=== PATIENT | female | born 1990 | race Caucasian/White ===

== ENCOUNTER 2019-03-27 18:24 | Emergency (ER) | payer OTHER ==
[2019-03-27] MEDS ORDERED: SODIUM CHLORIDE 0.9% 500 ML 500 ML IV ONE (18:48)
[2019-03-27] MEDS ORDERED: cefTRIAXone IN SWFI 1,000 MG/10 ML SYRINGE IVP STA (18:49)
[2019-03-27 18:57] LABS: Basophils % (A) 0 %; Eosinophils # (A) 0.1 k/uL (0-0.7); Eosinophils % (A) 2 %; HCT 35.6 % (34.0-46.0); HGB 12.8 gm/dL (11.4-16.0); Lymphocytes # (A) 1.9 k/uL (1.0-4.8); Lymphocytes % (A) 28 %; MCHC 36.1 g/dL (31.0-37.0); MCV 83.3 fL (80.0-100.0); Mean Platelet Volume 6.7; Monocytes # (A) 0.3 k/uL (0-1.0); Monocytes % (A) 5 %; Neutrophils # (A) 4.5 k/uL (1.3-7.7); Neutrophils % (A) 64 %; Platelet Count 226 k/uL (150-450); RBC 4.28 m/uL (3.80-5.40)
--- NOTE | 2019-03-27 19:20 | ED ---
Skin/Abscess/FB HPI <ShaheedJason - Last Filed: 03/27/19 19:50> - General Source: patient Mode of arrival: ambulatory Limitations: no limitations <Gladys Fry - Last Filed: 03/27/19 20:52> - General Chief complaint: Skin/Abscess/Foreign Body Stated complaint: rt leg infection, poss bug bite Time Seen by Provider: 03/27/19 18:28 - History of Present Illness Initial comments: 28-year-old female presents emergency department for chief complaint of insect bites of the right lower leg with possible infection. Patient states that about a week ago she noticed insect bites. She states that they looked red and infected so she presented to a local urgent care, where she was diagnosed with cellulitis. She states one lesion of the right lower lateral leg was more invasive appear to be forming an abscess. Patient states she was prescribed Keflex at this time. Patient states that she was not confident in the care she received at the urgent care and presented to primary care provider on Thursday she states that she was discontinued from the Keflex and begin on clindamycin patient states she has taken a total of 9 doses. Patient states that she does not feel that redness is getting better. Patient states there is a purulent center of the lesion of the distal right lateral leg. Patient was concerned that it was worsening presented [facility] for evaluation. Patient has a fever or fl ulike symptoms. Remaining review of system negative. Upon arrival patient appears well signs acute distress afebrile. (Gladys Fry) - Related Data Previous Rx's Medication Instructions Recorded Clindamycin [Cleocin] 450 mg PO Q8H 7 Days #63 capsule 03/27/19 Allergies Allergy/AdvReac Type Severity Reaction Status Date / Time No Known Allergies Allergy Verified 03/27/19 18:31 Review of Systems ROS Other: All systems not noted in ROS Statement are negative. <Jason Hummel - Last Filed: 03/27/19 19:50> ROS Other: All systems not noted in ROS Statement are negative. <Gladys Fry - Last Filed: 03/27/19 20:52> ROS Statement: Those systems with pertinent positive or pertinent negative responses have been documented in the HPI. Past Medical History Past Medical History: No Reported History History of Any Multi-Drug Resistant Organisms: None Reported Additional Past Surgical History / Comment(s): cyst removal Past Psychological History: No Psychological Hx Reported Smoking Status: Never smoker Past Alcohol Use History: None Reported Past Drug Use History: None Reported <Valerie Fryruben Mata - Last Filed: 03/27/19 20:52> General Exam Limitations: no limitations <Gladys Fry - Last Filed: 03/27/19 20:52> - General Exam Comments Initial Comments: General: The patient is awake and alert, in no distress, and does not appear acutely ill. Eye: Pupils are equal, round and reactive to light, extra-ocular movements are intact. No nystagmus. There is normal conjunctiva bilaterally. No signs of icterus. Cardiovascular: There is a regular rate and rhythm. No murmur, rub or gallop is appreciated. Respiratory: Lungs are clear to auscultation, respirations are non-labored, breath sounds are equal. No wheezes, stridor, rales, or rhonchi. Musculoskeletal: Normal ROM, no tenderness. Strength 5/5. Sensation intact. Pulses equal bilaterally 2+. Neurological: A&O x 3. CN II-XII intact grossly, There are no obvious motor or sensory deficits. Coordination appears grossly intact. Speech is normal. Skin: Skin is warm and dry. Radnom distribution of raised red lesions, there is multiple of the right leg jsut distal to the tibia, no abscess. No surrounding erythema. There is a lesion of the right lower leg lateral aspect a purulent center, no fluctuance of mild induration. There is very faint redness surrounding this lesion that extends towards the dorsum of the foot. There is no circumferential redness. No vesicular lesions crepitus of patient's skin. Psychiatric: Cooperative, appropriate mood & affect, normal judgment. (Gladys Fry) Course <Jason Hummel - Last Filed: 03/27/19 19:50> Vital Signs 03/27/19 03/27/19 18:26 19:52 Temperature 98 F 98.3 F Pulse Rate 79 85 Respiratory 20 18 Rate Blood Pressure 121/72 126/80 O2 Sat by Pulse 100 99 Oximetry - Reevaluation(s) Reevaluation #1: 03/27/19 19:50 PA supervision: I proceeded [id number] evaluation the patient did discuss Rashida love her and her . 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 The area in question a right lateral distal leg is as a level of the top of her boot. ID was done by the physician merchandising assistant without any further removal of possible the family did get pus out at home. The medications will be altered to increasing doses I did recommend she elevate her leg in addition to follow-up with her doctor return when necessary (Jason Hummel) Procedures - Incision & Drainage Consent Obtained: verbal consent Site: lower extremity (right leg on lesion) Size (cm): 1 (actual size .5 cm) I&D Cleaning Method: Chloroprep Sterile Field Used?: No Needle Aspiration Performed?: Yes (no drainage, only blood) Irrigation Performed?: No I&D Drainage Obtained: Blood Culture Obtained?: No Patient Tolerated Procedure: well, no complications <Gladys Fry - Last Filed: 03/27/19 20:52> Medical Decision Making - Lab Data Result diagrams: 03/27/19 18:50 03/27/19 19:00 <Jason Hummel - Last Filed: 03/27/19 19:50> - Lab Data Result diagrams: 03/27/19 18:50 03/27/19 19:00 <Gladys Fry - Last Filed: 03/27/19 20:52> - Medical Decision Making 28-year-old presented for evaluation of cellulitis. Patient concerned infection is worsening. Patient on 3 mg of Clinda 3 times a day total of 9 doses. Patient appears to have mild sailors examination. There is a very small area of induration no fluctuance with a purulent center. He'll aspiration was performed revealing no purulent drainage obtained. Only blood. Patient was given 1 dose of IV push Rocephin. Patient is no leukocytosis does not appear septic. This does not appear to be an extensive cellulitis. The doses of clindamycin be increased to 450 mg 3 times a day. Return parameters were discussed at length the patient was evaluated by my attending provider is agreeable care plan discharge at this time. Patient is agreeable to discharge and is aware of all return parameters including immediate return to emergency department for fevers flu like symptoms or spreading of the redness. Patient was discharged appearing well. (Gladys Fry) - Lab Data Lab Results 03/27/19 03/27/19 03/27/19 Range/Units 18:50 19:00 19:00 WBC 7.0 (3.8-10.6) k/uL RBC 4.28 (3.80-5.40) m/uL Hgb 12.8 (11.4-16.0) gm/dL Hct 35.6 (34.0-46.0) % MCV 83.3 (80.0-100.0) fL MCH 30.0 (25.0-35.0) pg MCHC 36.1 (31.0-37.0) g/dL RDW 12.0 (11.5-15.5) % Plt Count 226 (150-450) k/uL Neutrophils % 64 % Lymphocytes % 28 % Monocytes % 5 % Eosinophils % 2 % Basophils % 0 % Neutrophils # 4.5 (1.3-7.7) k/uL Lymphocytes # 1.9 (1.0-4.8) k/uL Monocytes # 0.3 (0-1.0) k/uL Eosinophils # 0.1 (0-0.7) k/uL Basophils # 0.0 (0-0.2) k/uL Sodium 140 (137-145) mmol/L Potassium 3.8 (3.5-5.1) mmol/L Chloride 106 (98-107) mmol/L Carbon Dioxide 25 (22-30) mmol/L Anion Gap 9 mmol/L BUN 10 (7-17) mg/dL Creatinine 0.86 (0.52-1.04) mg/dL Est GFR (CKD-EPI)AfAm >90 (>60 ml/min/1.73 sqM) Est GFR (CKD-EPI)NonAf >90 (>60 ml/min/1.73 sqM) Glucose 97 (74-99) mg/dL Calcium 9.0 (8.4-10.2) mg/dL Total Bilirubin 0.6 (0.2-1.3) mg/dL AST 19 (14-36) U/L ALT 17 (9-52) U/L Alkaline Phosphatase 51 (38-126) U/L Total Protein 7.4 (6.3-8.2) g/dL Albumin 4.3 (3.5-5.0) g/dL Urine HCG, Qual Not Detected (Not Detectd) Disposition <Jason Hummel - Last Filed: 03/27/19 19:50> Is patient prescribed a controlled substance at d/c from ED?: No Time of Disposition: 19:38 <Valerie Fryruben Mata - Last Filed: 03/27/19 20:52> Clinical Impression: Cellulitis Disposition: HOME SELF-CARE Condition: Good Instructions (If sedation given, give patient instructions): Cellulitis (ED) Additional Instructions: Please use medication as discussed-do no take the 300mg tablets, discard prescription, take the 450mg tablets prescribed. Please follow-up with family doctor in the next 2 days. Please return to emergency room if the symptoms increase or worsen or for any other concerns. Prescriptions: Clindamycin [Cleocin] 450 mg PO Q8H 7 Days #63 capsule Referrals: Lico Bardales DO [Primary Care Provider] - 1-2 days
[2019-03-27] MEDS ORDERED: KETOROLAC 30 MG/ML 1 ML VIAL IVP STA (19:37)
[2019-03-27 19:40] LABS: ALT 17 U/L (9-52); AST 19 U/L (14-36); African American GFR (CKD) >90 (>60 ml/min/1.73 sqM); Albumin 4.3 g/dL (3.5-5.0); Alkaline Phosphatase 51 U/L (38-126); Anion Gap 9 mmol/L; Blood Urea Nitrogen 10 mg/dL (7-17); Carbon Dioxide 25 mmol/L (22-30); Chloride 106 mmol/L (98-107); Glucose 97 mg/dL (74-99); Potassium 3.8 mmol/L (3.5-5.1); Sodium 140 mmol/L (137-145); Total Bilirubin 0.6 mg/dL (0.2-1.3); Total Protein 7.4 g/dL (6.3-8.2)
[2019-03-27 19:53] VITALS: BP 126/80; PULSE 85; RESP 18; TEMP 98.3
== END 2019-03-27 19:53 | disposition home or self-care (01) ==
LOC: EC 18:24
DX: L03.115 Cellulitis of right lower limb (principal); Z32.02 Encounter for pregnancy test, result negative
CPT/HCPCS: 36415; 80053; 85025; 81025; 99283; 10160; 96374; 96375; J0696; J1885